=== PATIENT | male | born 1930 | race Caucasian/White ===

== ENCOUNTER 2018-02-11 07:02 | Emergency (ER) | payer MEDICARE ==
[~2018-02-11 07:02] MED LIST: AMOX500C2 PO; ASPI-555 PO; CARB25DR OP; DIGO125T87 PO; FINA5TAB41 PO; LEVO500T2 PO; MULT-1258 PO; ROSU10TA PO; TAMS0.4C32 PO
[2018-02-11] MEDS ORDERED: SODIUM CHLORIDE 0.9% 1000ML 1,000 ML IV ONE (07:29)
[2018-02-11 07:34] LABS: BASOPHILS % (AUTO) 0.4 % (0.0-5.0); EOSINOPHILS % (AUTO) 8.9 % (0.0-8.0); HEMATOCRIT 42.6 % (42-54); LYMPHOCYTES % (AUTO) 20.3 % (21.0-51.0); MEAN CORPUSCULAR HEMOGLOBIN 32.2 pg (27.0-33.0); MEAN CORPUSCULAR HGB CONC 33.3 g/dL (32.0-36.0); MEAN CORPUSCULAR VOLUME 96.7 fL (79-99); MONOCYTES % (AUTO) 8.3 % (3.0-13.0); NEUTROPHILS % (AUTO) 62.1 % (40.0-77.0); PLATELET COUNT (AUTO) 137 K/uL (130-400); RED BLOOD CELL COUNT(AUTO) 4.41 MIL/uL (4.50-6.20); RED CELL DISTRIBUTION WIDTH 13.4 % (11.0-15.5)
[2018-02-11 07:43] LABS: CREATININE 1.7 mg/dL (0.5-1.5)
[2018-02-11 07:49] LABS: BILIRUBIN,TOTAL 0.9 mg/dL (0.2-1.0); TOTAL PROTEIN, SERUM 6.5 g/dL (6.0-8.3)
[2018-02-11 08:04] LABS: APPEARANCE,URINE Turbid (CLEAR); BILIRUBIN,URINE Negative (NEGATIVE); COLOR,URINE Yellow (YELLOW); GLUCOSE, URINE (UA) Negative (NEGATIVE); KETONES,URINE Negative (NEGATIVE); LEUKOCYTE ESTERASE ,URINE Large (NEGATIVE); NITRATE,URINE Positive (NEGATIVE); OCCULT BLOOD,URINE Moderate (NEGATIVE); PH,URINE 5.5 (5.0-8.0); PROTEIN,URINE Trace (NEGATIVE); UROBILINOGEN,URINE 0.2 mg/dL (0.2-1.0)
[2018-02-11] MEDS ORDERED: CEFTRIAXONE SODIUM 1 GM ONE (08:23)
[2018-02-11 08:26] LABS: BACTERIA,URINE Many /HPF (None Seen); SQUAMOUS EPITHELIAL CELL,UR 0-2 /HPF (0-2); WBC,URINE 26-50 /HPF (0-1)
[2018-02-11] MEDS ORDERED: SODIUM CHLORIDE 0.9% 500ML 500 ML IV ONE (08:43)
== END 2018-02-11 10:42 | disposition home or self-care (01) ==
LOC: EDH 07:02
DX: E86.0 Dehydration (principal); N39.0 Urinary tract infection, site not specified; I10 Essential (primary) hypertension; E78.5 Hyperlipidemia, unspecified; G20 Parkinson's disease; F02.80 Dementia in other diseases classified elsewhere, unspecified severity, without behavioral disturbance, psychotic disturbance, mood disturbance, and anxiety; G30.9 Alzheimer's disease, unspecified
CPT/HCPCS: 36415; 70450; 80053; 81001; 85025; 93005; 96361; 96374; 99285; J0696; J7030; J7040

== ENCOUNTER 2018-05-20 07:56 | Emergency (ER) | payer OTHER ==
[2018-05-20 08:50] LABS: EOSINOPHILS % (AUTO) 8.4 % (0.0-8.0); HEMATOCRIT 41.9 % (42-54); LYMPHOCYTES % (AUTO) 7.7 % (21.0-51.0); MEAN CORPUSCULAR HEMOGLOBIN 32.4 pg (27.0-33.0); MEAN CORPUSCULAR HGB CONC 33.4 g/dL (32.0-36.0); MONOCYTES % (AUTO) 2.5 % (3.0-13.0); NEUTROPHILS % (AUTO) 81.4 % (40.0-77.0); PLATELET COUNT (AUTO) 182 K/uL (130-400); RED BLOOD CELL COUNT(AUTO) 4.32 MIL/uL (4.50-6.20); RED CELL DISTRIBUTION WIDTH 13.8 % (11.0-15.5); WHITE BLOOD COUNT (AUTO) 7.1 K/uL (4.8-10.8)
[2018-05-20 09:09] LABS: INR 1.05 (0.85-1.15); PARTIAL THROMBOPLASTIN TIME 31.8 SEC (26.3-35.5)
[2018-05-20 09:15] LABS: APPEARANCE,URINE Turbid (CLEAR); BILIRUBIN,URINE Negative (NEGATIVE); COLOR,URINE Dark Yellow (YELLOW); GLUCOSE, URINE (UA) Negative (NEGATIVE); KETONES,URINE Trace mg/dL (NEGATIVE); LEUKOCYTE ESTERASE ,URINE Large (NEGATIVE); NITRATE,URINE Negative (NEGATIVE); OCCULT BLOOD,URINE Large (NEGATIVE); PROTEIN,URINE POS 2+ (NEGATIVE)
[2018-05-20 09:18] LABS: CREATININE 1.7 mg/dL (0.5-1.5); POTASSIUM 3.8 mmol/L (3.5-5.1)
[2018-05-20 09:22] LABS: ALBUMIN 2.9 g/dL (3.5-5.0); BILIRUBIN,TOTAL 0.6 mg/dL (0.2-1.0); TOTAL PROTEIN, SERUM 7.2 g/dL (6.0-8.3)
[2018-05-20 10:04] LABS: BACTERIA,URINE Many /HPF (None Seen)
[2018-05-20 10:07] LABS: RBC,URINE 26-50 /HPF (0-1)
[2018-05-20 10:08] LABS: AMORPHOUS SEDIMENT,UR Few /LPF (None Seen); SQUAMOUS EPITHELIAL CELL,UR None Seen /HPF (0-2)
[2018-05-20] MEDS ORDERED: LEVOFLOXACIN 500 MG/D5W 100 ML 100 ML ONE (14:22)
== END 2018-05-20 15:46 | disposition home or self-care (01) ==
LOC: EDH 07:56
DX: N39.0 Urinary tract infection, site not specified (principal); R33.9 Retention of urine, unspecified; Z95.1 Presence of aortocoronary bypass graft
CPT/HCPCS: 36415; 51702; 80053; 81001; 85025; 85610; 85730; 87077; 87088; 87186; 96365; 99284; J1956

== ENCOUNTER 2018-06-15 06:42 | Inpatient (IN) | payer OTHER ==
[~2018-06-15] VITALS: Ht 172.7 cm; Wt 85.2 kg
[2018-06-15 07:04] LABS: APPEARANCE,URINE Clear (CLEAR); BILIRUBIN,URINE Negative (NEGATIVE); COLOR,URINE Yellow (YELLOW); GLUCOSE, URINE (UA) Negative (NEGATIVE); KETONES,URINE Negative (NEGATIVE); LEUKOCYTE ESTERASE ,URINE Moderate (NEGATIVE); NITRATE,URINE Negative (NEGATIVE); OCCULT BLOOD,URINE Large (NEGATIVE); PH,URINE 5.5 (5.0-8.0); PROTEIN,URINE Trace (NEGATIVE); UROBILINOGEN,URINE 0.2 mg/dL (0.2-1.0)
[2018-06-15 07:06] LABS: BASOPHILS % (AUTO) 0.1 % (0.0-5.0); EOSINOPHILS % (AUTO) 0.5 % (0.0-8.0); HEMATOCRIT 37.1 % (42-54); LYMPHOCYTES % (AUTO) 4.4 % (21.0-51.0); MEAN CORPUSCULAR HEMOGLOBIN 31.5 pg (27.0-33.0); MEAN CORPUSCULAR VOLUME 95.4 fL (79-99); MONOCYTES % (AUTO) 7.7 % (3.0-13.0); NEUTROPHILS % (AUTO) 87.3 % (40.0-77.0); PLATELET COUNT (AUTO) 124 K/uL (130-400); RED BLOOD CELL COUNT(AUTO) 3.89 MIL/uL (4.50-6.20); RED CELL DISTRIBUTION WIDTH 14.2 % (11.0-15.5); WHITE BLOOD COUNT (AUTO) 6.7 K/uL (4.8-10.8)
[2018-06-15] MEDS ORDERED: SODIUM CHLORIDE 0.9% 1000ML 1,000 ML IV ONE (07:09)
[2018-06-15] MEDS ORDERED: ACETAMINOPHEN EXTRA STRENGTH 500 MG TABLET ONE ×3 (07:10→19:36)
[2018-06-15] MEDS ORDERED: IPRATROPIUM/ALBUTEROL SULFATE 3 ML SOLUTION IH ONE (07:17)
[2018-06-15 07:19] LABS: CREATININE 1.6 mg/dL (0.5-1.5); POTASSIUM 4.1 mmol/L (3.5-5.1)
[2018-06-15 07:22] LABS: ALBUMIN 2.9 g/dL (3.5-5.0); BILIRUBIN,TOTAL 1.3 mg/dL (0.2-1.0); INR 1.08 (0.85-1.15); PARTIAL THROMBOPLASTIN TIME 30.3 SEC (26.3-35.5); PROTHROMBIN TIME 11.3 SEC (9.6-11.6); TOTAL PROTEIN, SERUM 6.7 g/dL (6.0-8.3)
[2018-06-15 07:42] LABS: YEAST,URINE BUDDING Moderate /HPF (None Seen)
[2018-06-15 07:43] LABS: BACTERIA,URINE Few /HPF (None Seen)
[2018-06-15 07:46] LABS: TROPONIN I 0.04 ng/mL (0.00-0.06)
[2018-06-15 07:48] LABS: SQUAMOUS EPITHELIAL CELL,UR 0-2 /HPF (0-2)
[2018-06-15 07:53] LABS: B-TYPE NATRIURETIC PEPTIDE 159 pg/mL (0-100)
[2018-06-15] MEDS ORDERED: CEFTRIAXONE SODIUM 1 GM ONE (08:25)
[2018-06-15] MEDS ORDERED: SODIUM CHLORIDE 0.9% 50 ML IV ONE ×2 (08:26→15:10)
[2018-06-15] MEDS ORDERED: SODIUM CHLORIDE 0.9% 500ML 500 ML IV ONE (08:31)
[2018-06-15] MEDS ORDERED: HYDRALAZINE HCL 20 MG/ML VIAL IV PRN (09:15)
[2018-06-15] MEDS: SODIUM CHLORIDE IV SCH ×2 (14:15)
[2018-06-15] MEDS ORDERED: COMPOUND IV REFRIGERATED 1 EACH IVSOLN MISC PRN (14:15)
[2018-06-15] MEDS ORDERED: ONDANSETRON HCL 4 MG/2 ML VIAL IVP PRN (14:15)
[2018-06-15] MEDS: SODIUM BICARBONATE IV SCH ×2 (14:15)
[2018-06-15] MEDS: DEXTROSE IV SCH ×2 (14:15)
[2018-06-15] MEDS ORDERED: ACETAMINOPHEN EXTRA STRENGTH 500 MG TABLET PO PRN (14:15)
[2018-06-15] MEDS: MEROPENEM 500 MG VIAL IVP SCH ×2 (15:00→23:00)
[2018-06-15] MEDS ORDERED: MEROPENEM 500 MG VIAL ONE ×2 (15:09→23:07)
[2018-06-15] MEDS ORDERED: IBUPROFEN 600 MG TABLET ONE (17:29)
[2018-06-15] MEDS: DOCUSATE SODIUM 100 MG CAP PO SCH (21:00)
[2018-06-15] MEDS: TAMSULOSIN HCL 0.4 MG CAP.ER.24H PO SCH (21:00)
[2018-06-15] MEDS ORDERED: IBUPROFEN 600 MG TABLET PO PRN (21:00)
[2018-06-15] MEDS ORDERED: DOCUSATE SODIUM 100 MG CAP PO ONE (21:37)
[2018-06-15] MEDS ORDERED: TAMSULOSIN HCL 0.4 MG CAP.ER.24H ONE (21:37)
[2018-06-15] MEDS ORDERED: SODIUM CHLORIDE 0.9% 100 ML IV ONE (23:08)
[2018-06-16] MEDS ORDERED: IBUPROFEN 600 MG TABLET ONE (04:29)
[2018-06-16] MEDS ORDERED: ACETAMINOPHEN EXTRA STRENGTH 500 MG TABLET ONE (04:29)
[2018-06-16 05:34] LABS: HEMATOCRIT 34.3 % (42-54); MEAN CORPUSCULAR HEMOGLOBIN 31.9 pg (27.0-33.0); MEAN CORPUSCULAR HGB CONC 33.5 g/dL (32.0-36.0); MEAN CORPUSCULAR VOLUME 95.3 fL (79-99); NUCLEATED RED BLOOD CELLS 0.1 % (0.0-0.19); PLATELET COUNT (AUTO) 64 K/uL (130-400); RED CELL DISTRIBUTION WIDTH 14.1 % (11.0-15.5); WHITE BLOOD COUNT (AUTO) 4.9 K/uL (4.8-10.8)
[2018-06-16] MEDS: DEXTROSE IV SCH ×4 (05:35→21:56)
[2018-06-16] MEDS: SODIUM BICARBONATE IV SCH ×4 (05:35→21:56)
[2018-06-16] MEDS: SODIUM CHLORIDE IV SCH ×4 (05:35→21:56)
[2018-06-16 05:41] LABS: CREATININE 1.5 mg/dL (0.5-1.5); MAGNESIUM 1.5 mg/dL (1.80-2.40); PHOSPHORUS 2.6 mg/dL (2.5-4.9); POTASSIUM 3.8 mmol/L (3.5-5.1); TROPONIN I 0.14 ng/mL (0.00-0.06)
[2018-06-16 05:53] LABS: PLATELET MORPHOLOGY LARGE PLTS PRESENT
[2018-06-16 05:56] LABS: PLATELET MORPHOLOGY COMMENT LARGE PLTS PRESENT
[2018-06-16] MEDS: MEROPENEM 500 MG VIAL IVP SCH ×3 (07:00→23:52)
[2018-06-16] MEDS ORDERED: GLUCAGON 1MG KIT 1 MG ML IM PRN (07:30)
[2018-06-16] MEDS ORDERED: MAGNESIUM 2GM PREMIX 50ML 50 ML IV NR (07:30)
[2018-06-16] MEDS ORDERED: DEXTROSE 50%-WATER 50 ML DISP.SYRIN IV PRN (07:30)
[2018-06-16] MEDS: INSULIN R PO SS1/2 SQ SCH ×4 (07:30→21:00)
[2018-06-16] MEDS ORDERED: MAGNESIUM 2GM PREMIX 50ML 50 ML IV ONE (08:17)
[2018-06-16] MEDS: ENOXAPARIN SODIUM 30 MG/0.3 ML SQ SCH (09:00)
[2018-06-16] MEDS: FINASTERIDE 5 MG TABLET PO SCH (09:00)
[2018-06-16] MEDS: ASPIRIN 81MG TAB.CHEW PO SCH (09:00)
[2018-06-16] MEDS: PANTOPRAZOLE 40 MG/VIAL IVP SCH (09:00)
[2018-06-16] MEDS ORDERED: MEROPENEM 500 MG VIAL ONE (10:21)
[2018-06-16 12:20] VITALS: BP 97/53
--- NOTE | 2018-06-16 12:35 | NUR ---
ARRIVAL TO FLOOR PT IS RESTING IN BED, CALM. NO VISIBLE SIGNS OF DISTRESS NOTED. BREATHING PATTERN IS EVEN AND UNLABORED. FAMILY IS IN ROOM. ABLE TO ANSWER QUESTIONS APPROPRIATELY, STATES NAME AND . HOB UP AT 30 DEGREES, CALL LIGHT WITHIN REACH.
--- NOTE | 2018-06-16 12:40 | NUR ---
CATHETER AND LEG BAG NOTED. STATES CATH WAS PLACED 06/14/18
[2018-06-16 13:36] LABS: % IRON SATURATION 9.4 % (30-44)
[2018-06-16] MEDS: DIGOXIN 125 MCG TABLET PO SCH (14:16)
--- NOTE | 2018-06-16 14:32 | NUR ---
LEG BAG CHANGED TO REGULAR BAG
--- NOTE | 2018-06-16 14:52 | NUR ---
DR ALFARO ROUNDED ORDERS RECEIVED
[2018-06-16 16:09] VITALS: BP 129/60
[2018-06-16 16:46] VITALS: BP 129/60
--- NOTE | 2018-06-16 16:58 | NUR ---
DINNER SPOUSE ASSISTING WITH DINNER NO COMPLAINTS.
[2018-06-16 19:54] VITALS: BP 110/48
--- NOTE | 2018-06-16 20:00 | NUR ---
PT IN BED, AAOX1. DOES NOT KNOW WHERE HE IS AT. ABLE TO STATE NAME. PERRLA. WEARING GLASSES. IV FLUIDS AT 75ML/HR. PT REQUIRES ASSISTANCE. VERY CONFUSED. WEAKNESS NOTED. STATES NO PAIN. CLEAR UPPER LOBES. DIMINISHED LOWER LOBES.
[2018-06-16] MEDS: ARTIFICIAL TEARS 3.5 GM OINTMENT OU SCH (21:57)
[2018-06-16] MEDS: DOCUSATE SODIUM 100 MG CAP PO SCH (21:58)
[2018-06-16] MEDS: TAMSULOSIN HCL 0.4 MG CAP.ER.24H PO SCH (21:58)
[2018-06-16] MEDS: THIAMINE HCL 100 MG/ML 2ML VIAL IVP SCH (21:58)
--- NOTE | 2018-06-16 22:30 | NUR ---
CRITICAL CK LEVEL REPORTED FROM LAB. 2197. REPORTED LAB TO Maye DAVIES NP. NO NEW ORDERS. INFORMED PT IS ON SODIUM BI CARBONATE.
[2018-06-16 23:36] VITALS: BP 112/45
--- NOTE | 2018-06-17 03:00 | NUR ---
PT IS V-PACED/SR 70 BASE LINE.
[2018-06-17 03:40] VITALS: BP 109/53
[2018-06-17 03:52] LABS: HEMATOCRIT 27.7 % (42-54); MEAN CORPUSCULAR HEMOGLOBIN 32.5 pg (27.0-33.0); MEAN CORPUSCULAR HGB CONC 34.1 g/dL (32.0-36.0); MEAN CORPUSCULAR VOLUME 95.4 fL (79-99); NUCLEATED RED BLOOD CELLS 0.1 % (0.0-0.19); PLATELET COUNT (AUTO) 58 K/uL (130-400); RED BLOOD CELL COUNT(AUTO) 2.91 MIL/uL (4.50-6.20); WHITE BLOOD COUNT (AUTO) 3.1 K/uL (4.8-10.8)
[2018-06-17 04:04] LABS: ALBUMIN 1.8 g/dL (3.5-5.0); BILIRUBIN,TOTAL 0.8 mg/dL (0.2-1.0); CREATININE 1.6 mg/dL (0.5-1.5); TOTAL PROTEIN, SERUM 4.6 g/dL (6.0-8.3)
[2018-06-17 04:09] LABS: POTASSIUM 2.8 mmol/L (3.5-5.1)
[2018-06-17 04:22] LABS: BAND NEUTROPHILS % (MANUAL) 20 % (0-2); LYMPHOCYTES % (MANUAL) 8 % (22-44); MAN.DIFF COMMENT-IMPRESSION MANUAL DIFFERENTIAL; MONOCYTES % (MANUAL) 4 % (2-9); PLATELET MORPHOLOGY COMMENT DECREASED; SEGMENTED NEUTROPHILS % 68 % (40-70)
[2018-06-17] MEDS ORDERED: POTASSIUM CHLORIDE 20 MEQ ERTAB PO SCH (04:45)
[2018-06-17 04:55] LABS: BASOPHILS % (AUTO) 0.4 % (0.0-5.0); EOSINOPHILS % (AUTO) 3.7 % (0.0-8.0); HEMATOCRIT 33.4 % (42-54); LYMPHOCYTES % (AUTO) 20.2 % (21.0-51.0); MEAN CORPUSCULAR HEMOGLOBIN 32.5 pg (27.0-33.0); MEAN CORPUSCULAR HGB CONC 34.3 g/dL (32.0-36.0); MEAN CORPUSCULAR VOLUME 94.6 fL (79-99); MONOCYTES % (AUTO) 14.8 % (3.0-13.0); NEUTROPHILS % (AUTO) 60.9 % (40.0-77.0); PLATELET COUNT (AUTO) 64 K/uL (130-400); RED BLOOD CELL COUNT(AUTO) 3.53 MIL/uL (4.50-6.20); RED CELL DISTRIBUTION WIDTH 13.9 % (11.0-15.5); WHITE BLOOD COUNT (AUTO) 3.7 K/uL (4.8-10.8)
[2018-06-17 05:03] LABS: CREATININE 1.7 mg/dL (0.5-1.5); POTASSIUM 3.5 mmol/L (3.5-5.1)
[2018-06-17 05:07] LABS: ALBUMIN 2.1 g/dL (3.5-5.0); BILIRUBIN,TOTAL 0.9 mg/dL (0.2-1.0); MAGNESIUM 2.1 mg/dL (1.80-2.40); TOTAL PROTEIN, SERUM 5.5 g/dL (6.0-8.3)
[2018-06-17] MEDS: MEROPENEM 500 MG VIAL IVP SCH ×3 (06:35→23:12)
[2018-06-17] MEDS: INSULIN R PO SS1/2 SQ SCH ×4 (06:35→21:00)
[2018-06-17 07:42] VITALS: BP 108/53
[2018-06-17] MEDS: ASPIRIN 81MG TAB.CHEW PO SCH (10:16)
[2018-06-17] MEDS: FINASTERIDE 5 MG TABLET PO SCH (10:17)
[2018-06-17] MEDS: ENOXAPARIN SODIUM 30 MG/0.3 ML SQ SCH (10:17)
[2018-06-17] MEDS: FOLIC ACID/VITAMIN B COMP W-C 1 MG CAPSULE PO SCH (10:17)
[2018-06-17] MEDS: PANTOPRAZOLE 40 MG/VIAL IVP SCH (10:17)
[2018-06-17 11:30] VITALS: BP 123/64
[2018-06-17] MEDS: SODIUM CHLORIDE 0.9% 1000ML 1,000 ML IV SCH (13:30)
--- NOTE | 2018-06-17 14:57 | NUR ---
INITIAL: Met with pt and spouse this afternoon to discuss dcp. Pt w confusion, spouse answers questions. Prior to admission pt was living w spouse. He uses a FWW for ambulation and a wc for long community distances. Pt required supervision-min assist w ADLs. SHe mentions the [place] sent a provider to assist w bathing 1hr/day and housekeeping assistance 3hr/day. Pt has at home a rollator and nebulizer. Per Mrs. Jonas pt was recently @ [facility] for short term rehab. She mentions if pt recovers and is strong enough dcp would be for home. Otherwise she is willing to consider SNf if covered by [facility]. Will continue to follow and wait for Md recommendations. Addendum: 06/17/18 at 1500 by CARLOS WARD Amended: Links added.
[2018-06-17] MEDS: DIGOXIN 125 MCG TABLET PO SCH (15:41)
[2018-06-17 16:39] VITALS: BP 114/62
[2018-06-17] MEDS ORDERED: FLUCONAZOLE 400 MG/NS 200 ML 200 ML IV SCH (18:45)
--- NOTE | 2018-06-17 20:00 | NUR ---
PT CONTINUES TO BE VERY CONFUSED. UNABLE TO RECALL PLACE AND TIME. STATES CONFUSED PHRASES. ATTEMPTS TO PULL AT IVS AND FELIPE CATHETER. PT IS UNABLE TO STATE IF IN PAIN. IV PATENT. CONTINUES ON IV FLUIDS AT 70ML/HR.
[2018-06-17 20:02] VITALS: BP_SYST 104; BP_SYST 123; BP_DIAS 47; BP_DIAS 59
[2018-06-17] MEDS: ARTIFICIAL TEARS 3.5 GM OINTMENT OU SCH (20:05)
[2018-06-17] MEDS: DOCUSATE SODIUM 100 MG CAP PO SCH (20:05)
[2018-06-17] MEDS: THIAMINE HCL 100 MG/ML 2ML VIAL IVP SCH (20:05)
[2018-06-17] MEDS: TAMSULOSIN HCL 0.4 MG CAP.ER.24H PO SCH (20:05)
[2018-06-17 23:32] VITALS: BP 135/83
--- NOTE | 2018-06-18 | NUR ---
FELIPE CATHETER CHANGED PER DR. GONZALEZ. 16FRENCH. 06/18/18. PT WAS NOTED TO HAVE REDNESS TO [place]AYO AREA. HAS WOUND TO LEFT SIDE OF PENIS. CLEANSED AREA PROPERLY AND INSERTED FELIPE CATHETER USING STERILE TECHNIQUE.
[2018-06-18] MEDS: SODIUM CHLORIDE 0.9% 1000ML 1,000 ML IV SCH ×2 (03:31→17:24)
[2018-06-18 03:55] VITALS: BP 121/59
[2018-06-18 04:11] LABS: BASOPHILS % (AUTO) 0.4 % (0.0-5.0); EOSINOPHILS % (AUTO) 4.5 % (0.0-8.0); HEMATOCRIT 31.3 % (42-54); LYMPHOCYTES % (AUTO) 17.5 % (21.0-51.0); MEAN CORPUSCULAR HGB CONC 34.7 g/dL (32.0-36.0); MEAN CORPUSCULAR VOLUME 95.1 fL (79-99); MONOCYTES % (AUTO) 14.2 % (3.0-13.0); NEUTROPHILS % (AUTO) 63.4 % (40.0-77.0); PLATELET COUNT (AUTO) 89 K/uL (130-400); RED BLOOD CELL COUNT(AUTO) 3.29 MIL/uL (4.50-6.20); RED CELL DISTRIBUTION WIDTH 14.3 % (11.0-15.5); WHITE BLOOD COUNT (AUTO) 4.9 K/uL (4.8-10.8)
[2018-06-18 04:43] LABS: ALBUMIN 2.2 g/dL (3.5-5.0); BILIRUBIN,TOTAL 0.9 mg/dL (0.2-1.0); CREATININE 1.5 mg/dL (0.5-1.5); POTASSIUM 3.3 mmol/L (3.5-5.1); TOTAL PROTEIN, SERUM 5.5 g/dL (6.0-8.3)
[2018-06-18] MEDS: INSULIN R PO SS1/2 SQ SCH ×4 (06:24→20:24)
[2018-06-18] MEDS: MEROPENEM 500 MG VIAL IVP SCH ×2 (07:32→15:17)
[2018-06-18 07:39] VITALS: BP 109/66
[2018-06-18] MEDS: FLUCONAZOLE 200 MG/NS 100 ML 100 ML IV SCH (09:28)
[2018-06-18] MEDS: FINASTERIDE 5 MG TABLET PO SCH (09:28)
[2018-06-18] MEDS: ASPIRIN 81MG TAB.CHEW PO SCH (09:28)
[2018-06-18] MEDS: FOLIC ACID/VITAMIN B COMP W-C 1 MG CAPSULE PO SCH (09:28)
[2018-06-18] MEDS: ENOXAPARIN SODIUM 30 MG/0.3 ML SQ SCH (09:41)
[2018-06-18] MEDS: PANTOPRAZOLE SODIUM 40 MG TABLET.DR PO SCH (09:41)
[2018-06-18 11:48] VITALS: BP 103/57
[2018-06-18] MEDS: DIGOXIN 125 MCG TABLET PO SCH (15:18)
[2018-06-18 16:39] VITALS: BP 124/71
[2018-06-18] MEDS ORDERED: SODIUM BICARB 8.4% 50ML SYRING 150 MEQ in DEXTROSE 5%-WATER 1,000 ML IV SCH ×2 (17:15→19:00)
[2018-06-18] MEDS ORDERED: POTASSIUM CHLORIDE 20 MEQ ERTAB PO SCH (17:15)
[2018-06-18] MEDS: POTASSIUM CHLORIDE 10% ELIXIR 20 MEQ/15 ML UDCUP PO SCH (18:43)
[2018-06-18 18:55] VITALS: BP 123/79
[2018-06-18] MEDS: TAMSULOSIN HCL 0.4 MG CAP.ER.24H PO SCH (20:30)
[2018-06-18] MEDS: DOCUSATE SODIUM 100 MG CAP PO SCH (20:30)
[2018-06-18] MEDS: THIAMINE HCL 100 MG/ML 2ML VIAL IVP SCH (20:30)
[2018-06-18] MEDS: ARTIFICIAL TEARS 3.5 GM OINTMENT OU SCH (20:31)
[2018-06-18] MEDS ORDERED: BISACODYL 5 MG TABLET.DR PO ONE (21:00)
[2018-06-18 23:23] VITALS: BP 133/68
[2018-06-19] MEDS: MEROPENEM 500 MG VIAL IVP SCH ×3 (00:57→15:19)
[2018-06-19 03:47] VITALS: BP 113/70
[2018-06-19 04:59] LABS: HEMATOCRIT 32.2 % (42-54); MEAN CORPUSCULAR HEMOGLOBIN 31.7 pg (27.0-33.0); MEAN CORPUSCULAR HGB CONC 33.3 g/dL (32.0-36.0); MEAN CORPUSCULAR VOLUME 95.2 fL (79-99); PLATELET COUNT (AUTO) 94 K/uL (130-400); RED BLOOD CELL COUNT(AUTO) 3.38 MIL/uL (4.50-6.20); RED CELL DISTRIBUTION WIDTH 14.3 % (11.0-15.5)
[2018-06-19 05:17] LABS: CREATININE 1.3 mg/dL (0.5-1.5); POTASSIUM 3.8 mmol/L (3.5-5.1)
[2018-06-19 05:24] LABS: B-TYPE NATRIURETIC PEPTIDE 350 pg/mL (0-100)
[2018-06-19] MEDS: INSULIN R PO SS1/2 SQ SCH ×4 (06:20→21:00)
[2018-06-19] MEDS: PANTOPRAZOLE SODIUM 40 MG TABLET.DR PO SCH (06:23)
[2018-06-19 07:02] VITALS: BP 127/49
[2018-06-19] MEDS ORDERED: EPOETIN ALFA 10,000 UNIT/ML VIAL SQ SCH (08:15)
[2018-06-19] MEDS ORDERED: COMPOUND IV MISC 1 EACH IVSOLN MISC PRN (09:45)
[2018-06-19] MEDS: FLUCONAZOLE 200 MG/NS 100 ML 100 ML IV SCH (10:17)
[2018-06-19] MEDS: FOLIC ACID/VITAMIN B COMP W-C 1 MG CAPSULE PO SCH (10:19)
[2018-06-19] MEDS: FINASTERIDE 5 MG TABLET PO SCH (10:19)
[2018-06-19] MEDS: ENOXAPARIN SODIUM 30 MG/0.3 ML SQ SCH (10:19)
[2018-06-19] MEDS: ASPIRIN 81MG TAB.CHEW PO SCH (10:19)
[2018-06-19] MEDS: IRON SUCROSE COMPLEX 100 MG in SODIUM CHLORIDE 0.9% 50 ML IV SCH (10:20)
[2018-06-19 11:24] VITALS: BP 107/64
--- NOTE | 2018-06-19 12:27 | NUR ---
DC PLAN VISITED WITH PATIENT. PATIENT LESS CONFUSED. BALWINDER SIGNED BY SPOUSE TO [facility]. PATIENT ON A ONE TO ONE FOR SAFETY. WILL CONTINUE TO FOLLOW.
[2018-06-19] MEDS: DIGOXIN 125 MCG TABLET PO SCH (15:22)
[2018-06-19] MEDS: POTASSIUM CHLORIDE 10% ELIXIR 20 MEQ/15 ML UDCUP PO SCH (15:22)
[2018-06-19 16:00] VITALS: BP 131/53
[2018-06-19 19:25] VITALS: BP 147/74
[2018-06-19] MEDS: ARTIFICIAL TEARS 3.5 GM OINTMENT OU SCH (21:00)
[2018-06-19] MEDS: DOCUSATE SODIUM 100 MG CAP PO SCH (21:00)
[2018-06-19] MEDS: TAMSULOSIN HCL 0.4 MG CAP.ER.24H PO SCH (21:00)
[2018-06-19] MEDS: THIAMINE HCL 100 MG/ML 2ML VIAL IVP SCH (21:00)
--- NOTE | 2018-06-19 21:45 | NUR ---
CK at 470 from initial CK of 2197 on 06/15/2018. MD aware of critical CK and CK trending down. pt on sodium bicarb gtt. will continue to monitor.
[2018-06-19 23:26] VITALS: BP 140/72
[2018-06-20] MEDS: MEROPENEM 500 MG VIAL IVP SCH ×3 (00:11→16:02)
[2018-06-20 04:00] VITALS: BP 141/59
[2018-06-20 04:55] LABS: HEMATOCRIT 30.4 % (42-54); MEAN CORPUSCULAR HGB CONC 34.9 g/dL (32.0-36.0); MEAN CORPUSCULAR VOLUME 94.6 fL (79-99); PLATELET COUNT (AUTO) 117 K/uL (130-400); RED BLOOD CELL COUNT(AUTO) 3.21 MIL/uL (4.50-6.20); RED CELL DISTRIBUTION WIDTH 14.1 % (11.0-15.5); WHITE BLOOD COUNT (AUTO) 5.5 K/uL (4.8-10.8)
[2018-06-20 05:01] LABS: CREATININE 1.2 mg/dL (0.5-1.5); POTASSIUM 3.5 mmol/L (3.5-5.1)
[2018-06-20 05:05] LABS: B-TYPE NATRIURETIC PEPTIDE 462 pg/mL (0-100)
[2018-06-20] MEDS: PANTOPRAZOLE SODIUM 40 MG TABLET.DR PO SCH (05:06)
[2018-06-20] MEDS: INSULIN R PO SS1/2 SQ SCH ×3 (06:02→16:30)
[2018-06-20 07:31] VITALS: BP 125/56
--- NOTE | 2018-06-20 08:00 | NUR ---
ASSESSMENT PT IS RESTING IN BED, BREATHING PATTERN IS EVEN AND UNLABORED. NO VISIBLE SIGNS OF DISTRESS NOTED. HOB UP AT 30 DEGREES, CALL LIGHT WITHIN REACH.
[2018-06-20] MEDS: FLUCONAZOLE 200 MG/NS 100 ML 100 ML IV SCH (08:02)
[2018-06-20] MEDS: IRON SUCROSE COMPLEX 100 MG in SODIUM CHLORIDE 0.9% 50 ML IV SCH (08:02)
[2018-06-20] MEDS: ASPIRIN 81MG TAB.CHEW PO SCH (08:02)
[2018-06-20] MEDS: ENOXAPARIN SODIUM 30 MG/0.3 ML SQ SCH (08:02)
[2018-06-20] MEDS: FOLIC ACID/VITAMIN B COMP W-C 1 MG CAPSULE PO SCH (08:02)
[2018-06-20] MEDS: FINASTERIDE 5 MG TABLET PO SCH (08:02)
[2018-06-20] MEDS ORDERED: FLUC100T8 PO (08:42)
[2018-06-20 10:47] VITALS: BP 117/55
--- NOTE | 2018-06-20 11:30 | NUR ---
STATUS UP IN CHAIR, SPOUSE IS AT BEDSIDE. PT IS AWAKE AND ALERT. CALL LIGHT WITHIN REACH.
[2018-06-20] MEDS: DIGOXIN 125 MCG TABLET PO SCH (16:02)
--- NOTE | 2018-06-20 16:03 | NUR ---
REPORT GIVEN TO [facility] AWAITING TRANSPORT VAN
[2018-06-20 16:05] VITALS: BP 131/58
--- NOTE | 2018-06-20 16:59 | NUR ---
DC PLAN SPOKE TO DASHAWN PATIENT ACCEPTED. DC PLAN FOR TODAY. WILL GO VIA FACILITY VAN. Addendum: 06/20/18 at 1702 by YURY SARGENT RN CM Amended: Links added.
--- NOTE | 2018-06-20 18:32 | NUR ---
PATIENT PICKED UP VIA WHEELCHAIR BY [facility] STAFF. DC PACKET TAKEN WITH STAFF, PIV REMOVED CATH TIP INTACT, TELE PACK REMOVED. HAD TAKEN ALL BELONGINGS PRIOR TO NOW.
== END 2018-06-20 18:35 | DRG 871 ==
LOC: EDH 06:42 → EDHIP 09:03 → 2DH 06-16 13:06
PROVIDERS: ADMIT Internal Medicine; ATTEND Internal Medicine
DX: A41.9 Sepsis, unspecified organism (principal); G93.41 Metabolic encephalopathy; M62.82 Rhabdomyolysis; N39.0 Urinary tract infection, site not specified; N17.9 Acute kidney failure, unspecified; B49 Unspecified mycosis; R31.29 Other microscopic hematuria; N18.3 Chronic kidney disease, stage 3 (moderate); I12.9 Hypertensive chronic kidney disease with stage 1 through stage 4 chronic kidney disease, or unspecified chronic kidney disease; D64.9 Anemia, unspecified; E78.5 Hyperlipidemia, unspecified; F02.80 Dementia in other diseases classified elsewhere, unspecified severity, without behavioral disturbance, psychotic disturbance, mood disturbance, and anxiety; N40.1 Benign prostatic hyperplasia with lower urinary tract symptoms; R33.8 Other retention of urine; G20 Parkinson's disease; G30.9 Alzheimer's disease, unspecified; I25.10 Atherosclerotic heart disease of native coronary artery without angina pectoris; Z82.0 Family history of epilepsy and other diseases of the nervous system; Z82.3 Family history of stroke; Z82.49 Family history of ischemic heart disease and other diseases of the circulatory system; Z82.5 Family history of asthma and other chronic lower respiratory diseases; Z83.3 Family history of diabetes mellitus; Z87.891 Personal history of nicotine dependence; Z95.0 Presence of cardiac pacemaker; Z95.1 Presence of aortocoronary bypass graft; Z79.82 Long term (current) use of aspirin; Z79.899 Other long term (current) drug therapy; Z90.49 Acquired absence of other specified parts of digestive tract
CPT/HCPCS: 36415; 70450; 71045; 76770; 80048; 80053; 81001; 82550; 82728; 82948; 83540; 83550; 83605; 83690; 83735; 83874; 83880; 84100; 84484; 85025; 85027; 85610; 85730; 87040; 87088; 87804; 93005; 94640; 97039; 99291; A4218; A4344; C9113; G0378; J0696; J0885; J1450; J1650; J1756; J2185; J3411; J3475; J3490; J7030; J7040; J7042; J7070